=== PATIENT | female | born 1975 | race Caucasian/White ===

== ENCOUNTER → 2018-03-20 | Outpatient (CLI) | payer BC ==
[~2018-03-20] MED LIST: ALB18R INH; CETI-184 PO; CETI10CA PO; DULERAPT INH; LEVO750T27 PO; PRED-1 PO; SUMA100T33 PO; [UNRECOGNIZED DRUG - CODE] MC
--- NOTE | 2018-03-21 08:46 | RADIOLOGY IMAGING REPORT ---
FACILITY: [facility] [place] PATIENT NAME: INOCENTE BURRIS : [id number] MR: [id number] V: [id number] EXAM DATE: [id number] ORDERING PHYSICIAN: MAVERICK BENITEZ TECHNOLOGIST: Yaquelin Lucio PROCEDURE:BILATERAL DIGITAL SCREENING MAMMOGRAM WITH CAD ASSISTED INTERPRETATION & 3D TOMOSYNTHESIS COMPARISON:Baseline mammogram. INDICATIONS:SCREENING FINDINGS: Mild amount of fibroglandular tissue is seen throughout the breasts. There is a small asymmetry in the anterior 1/3 of the Right breast just medial to midline one the Right CC view for which Spot compression view is recommended. DIAGNOSTIC CATEGORY 0--INCOMPLETE: NEED ADDITIONAL IMAGING EVALUATION. RECOMMENDATIONS: ADDITIONAL MAMMOGRAPHIC VIEWS REQUIRED: RIGHT BREAST. IMPRESSION: BIRADS 0: Incomplete. Additional view of the Right breast recommended as described. Dictated by: Judie Gómez M.D. on 03/20/2018 at 17:42 Transcribed by: SADIE on 03/21/2018 at 8:07 Approved by: Judie Gómez M.D. on 03/21/2018 at 8:45 [facility]
== END ==
LOC: MAMO 00:25
PROVIDERS: ATTEND Nurse Practitioner Family
DX: Z12.31 Encounter for screening mammogram for malignant neoplasm of breast (principal); R92.8 Other abnormal and inconclusive findings on diagnostic imaging of breast
CPT/HCPCS: 77063; 77067

== ENCOUNTER → 2018-05-23 | Outpatient (CLI) | payer BC ==
--- NOTE | 2018-05-26 10:18 | RADIOLOGY IMAGING REPORT ---
FACILITY: [facility] PATIENT NAME: INOCENTE BURRIS : [id number] MR: [id number] V: [id number] EXAM DATE: ORDERING PHYSICIAN: MAVERICK BENITEZ TECHNOLOGIST: Yaquelin Lucio PROCEDURE:RIGHT DIGITAL DIAGNOSTIC MAMMOGRAM WITH CAD ASSISTED INTERPRETATION & 3D TOMOSYNTHESIS COMPARISON:Prior mammogram 03/20/18. INDICATIONS:FURTHER EVAL FINDINGS: Scattered fibroglandular densities are seen throughout the Right breast. The focal area of increased density in the anterior 1/3 medial aspect of the Right breast on the prior Right CC view appear compressible and apparently represent a summation shadow. There was no demonstration of malignant appearing mass or calcification in the Right breast. DIAGNOSTIC CATEGORY 1--NEGATIVE. RECOMMENDATIONS: ROUTINE MAMMOGRAM AND CLINICAL EVALUATION. IMPRESSION: BIRADS 1: Negative. No significant abnormality of the Right breast is seen. Dictated by: Judie Gómez M.D. on 05/23/2018 at 10:05 Transcribed by: SADIE on 05/23/2018 at 10:29 Approved by: Judie Gómez M.D. on 05/26/2018 at 10:17 [facility]
== END ==
LOC: MAMO 00:26
PROVIDERS: ATTEND Nurse Practitioner Family
DX: R92.8 Other abnormal and inconclusive findings on diagnostic imaging of breast (principal)
CPT/HCPCS: 77061; 77065